=== PATIENT | male | born 1950 | race Caucasian/White ===

== ENCOUNTER 2024-11-22 16:55 | Inpatient (IN) | payer MEDICARE, SELFPAY ==
[2024-11-22 12:36] VITALS: BP 160/100
[2024-11-22 13:05] LABS: % Basophils 0.9 % (0-2); % Eosinophils 0.5 % (0-6); % Immature Granulocytes 0.2 % (0-0.5); % Lymphocytes 18.1 % (20.5-51.1); % Monocytes 6.8 % (1.7-9.3); % Neutrophils 73.5 % (42.2-75.2); Absolute Basophils 0.1 10^3/uL (0-0.2); Absolute Eosinophils 0.1 10^3/uL (0-0.7); Absolute Lymphocytes 2.3 10^3/uL (1.2-3.4); Absolute Monocytes 0.9 10^3/uL (0.1-0.6); Absolute Neutrophils 9.2 10^3/uL (1.4-6.5); Hematocrit 43.2 % (39.0-52.0); Hemoglobin 15.4 g/dL (13.0-18.0); Mean Corp Hgb Conc. 35.6 g/dL (33.0-37.0); Mean Corpuscular Hgb 30.2 pg (27.0-31.0); Mean Corpuscular Volume 84.7 fL (80.0-94.0); Mean Platelet Volume 8.9 fL (7.4-10.4); Nucleated Red Blood Cells % 0 % (-); Platelet Count 277 10^3/uL (130-400); Red Cell Dist. Width 12.7 % (11.5-14.5); White Blood Cell Count 12.5 10^3/uL (4.8-10.8)
[2024-11-22 13:16] LABS: ALT (SGPT) 20 U/L (0-50); AST (SGOT) 21 U/L (17-59); Albumin 4.7 g/dl (3.5-5.0); Alkaline Phosphatase 97 U/L (38-126); Blood Urea Nitrogen 16 mg/dl (9-20); Calcium 9.4 mg/dl (8.4-10.2); Carbon Dioxide 18 mmol/L (22-30); Chloride 109 mmol/L (98-107); Glucose 141 mg/dl (70-99); Sodium 138 mmol/L (135-145); Total Bilirubin 0.6 mg/dl (0.2-1.3); eGFR > 60.00
[2024-11-22 13:25] LABS: Troponin I < 0.012 ng/ml
[2024-11-22 13:29] VITALS: BP 152/102
[2024-11-22 13:51] LABS: Potassium 4.2 mmol/L (3.5-5.1); Total Protein 7.6 g/dl (6.3-8.2)
[2024-11-22 14:31] VITALS: BP 155/103
[2024-11-22] MEDS: DELTASONE 50 MG PO (14:43)
[2024-11-22] MEDS: DUONEB 3 ML INH (14:43)
[2024-11-22 14:55] LABS: D-Dimer 0.63 ug/mlFEU (0.00-0.50)
--- NOTE | 2024-11-22 15:01 | CM ---
Addendum entered by Andreina Hope 11/22/24 16:07:
Discussion with Dr Jimenez, will plan for admission
Lyft ride cancelled
Original Note:
ED CM consult for homeless services
Pt evicted this morning by [facility], pt has not prepared fort eviction
Homeless resources provided to pt along with [facility]
CM attempted to speak with [facility] directly for inquire into immediate [facility] availability, no answer
[facility] with immediate bed availability this evening
Pt declined local mot stay electing [facility] placement in [place]
CM to arrange for Lyft to [facility]
Medical work up pending, do not anticipate need for admission at this time
--- NOTE | 2024-11-22 15:11 | ED.GENMED ---
History of Present Illness
General
Chief Complaint: Anxiety
Source: patient and records
Exam Limitations: none
Time Seen by Provider: 11/22/24 14:11
Nursing documentation reviewed up to this point in time: agreed with
History of Present Illness
History of Present Illness:
73-year-old male with history as documented presents to the ER for evaluation of 'anxiety.' Patient says that he was evicted from his house today and he has nowhere to go. He says that he has been feeling very anxious because of this. He
describes anxiety as feeling short of breath with racing heart. He denies any chest pain. He denies any coughing, fevers, chills. He has had issues with anxiety in the past. He notes that his blood pressure has been high recently because he ran
out of his blood pressure medication that she cannot recall what medication he is supposed to be on. He says he has not taken it for at least a few days. Denies any drug or alcohol use. He denies any other complaints�specifically asked about
mental health concerns he denies suicidality, homicidal ideation, hallucinations.
Past History
Past History
ED Past Medical History: HTN and Psychiatric (anxiety , depression)
ED Past Surgical History: None and Tonsilectomy
Social History
Tobacco: Former smoker
Alcohol: Former
Drug: None
Personal: Single
Living: alone
Review of Systems
Review of Systems
All Other Systems: ROS reviewed and negative except as documented in HPI and ROS
Constitutional: Denies fever
Respiratory: Reports trouble breathing; Denies cough
Cardiac: Reports palpitations; Denies chest pain
ABD/GI: Denies abdominal pain, nausea or vomiting
: Denies flank pain
Musculoskeletal: Denies neck pain or back pain
Neurological: Denies dizzy or headache
Psychiatric: Reports anxiety; Denies suicidal or hallucinations
Phy Exam
Physical Exam
Physical Exam:
General: Awake, alert; no acute distress
Head: Normocephalic, atraumatic
Eyes: Conjunctiva normal, sclera anicteric
Throat: Airway intact, handling secretions
Neck: Trachea midline, supple without meningismus
Lungs: Scattered wheezing bilaterally; breathing comfortably with normal respiratory rate, normal pulse ox
Heart: Tachycardia with regular rhythm, no murmurs, gallops, or rubs
Abd: Soft, non distended, nontender
Neuro: No gross deficits
Extremities: No edema in extremities, warm and well-perfused
Scores
Heart Failure Risk
Heart Failure Risk Score: Not Applicable
Heart Score for Chest Pain Patients
STEMI patient?: Not applicable
Withdrawal Assessment of Alcohol
Withdrawal Assessment Completed?: Not applicable
Course
Orders/Labs/Results
Orders:
Orders
11/22/24 12:39
Electrocardiogram (*1) Urgent
Reason for Study: Hypertension, Benign
EKG- Treatment ONCE
11/22/24 12:42
Complete Blood Count/With Diff Urgent
Comprehensive Metabolic Panel Urgent
Troponin I Urgent
11/22/24 14:20
Case Management Consult ONCE
Case Management Consult: Discharge Planning
11/22/24 14:30
D-Dimer Urgent
11/22/24 14:35
Ipratropium/Albuterol Sulfate [Duoneb] 3 ml INH R NOW STA
Prednisone [Deltasone] 50 mg PO NOW STA
11/22/24 14:36
CR Chest - 2 Views Urgent
Comment:
Reason For Exam: sob
11/22/24 15:54
Amlodipine [Norvasc] 5 mg .ROUTE .STK-MED ONE
11/22/24 16:00
Amlodipine [Norvasc] 5 mg PO DAILY
11/22/24 16:03
Azithromycin 500 mg/250 ml [Zithromax Infusion] 500 mg in 250 ml IV NOW
CefTRIAXone [Rocephin] 1,000 mg IV NOW STA
11/22/24 16:15
Blood Culture Q30M
[facility] Source: Blood/Venous
Specimen Description:
11/22/24 16:45
Blood Culture Q30M
[facility] Source: Blood/Venous
Specimen Description:
Abnormal Lab Results
11/22/24 11/22/24
12:42 14:30
WBC 12.5 H 10^3/uL
(4.8-10.8)
Absolute Neuts (auto) 9.2 H 10^3/uL
(1.4-6.5)
Absolute Monos (auto) 0.9 H 10^3/uL
(0.1-0.6)
Lymphocytes % 18.1 L %
(20.5-51.1)
D-Dimer 0.63 H ug/mlFEU
(0.00-0.50)
Chloride 109 H mmol/L
(98-107)
Carbon Dioxide 18 L mmol/L
(22-30)
Glucose 141 H mg/dl
(70-99)
11/22/24 12:42
11/22/24 12:42
Vital Signs
Initial and Last Documented VS:
Initial Vital Signs
Temp Pulse Resp BP Pulse Ox
36.9 C 118 18 160/100 95
11/22/24 12:36 11/22/24 12:36 11/22/24 12:36 11/22/24 12:36 11/22/24 12:36
Last Documented Vital Signs
Temp Pulse Resp BP Pulse Ox
36.9 C 95 18 118/66 95
11/22/24 12:36 11/22/24 15:59 11/22/24 14:31 11/22/24 15:59 11/22/24 16:00
MDM/Problems Addressed
Differential Diagnosis Includes:
Shortness of breath: anxiety, COPD, pneumonia, PE, ACS, dysrhythmia
MDM/Problems Addressed:
73-year-old male presents for evaluation of 'anxiety'�describes subjective shortness of breath, palpitation, anxious feeling that started after eviction from his apartment today. Hypertensive�has been noncompliant with blood pressure medication he
says because he ran out of his prescription. Queried his pharmacy he has been on amlodipine�benazepril 5-10 mg tablets. He is not mildly hypertensive here, heart rate low 100s. Physical exam as above. He does have some wheezing on exam he says
that he is a daily smoker�certainly COPD could be adding to his feeling of shortness of breath although I do suspect strong component of anxiety. Multiple visits for anxiety in the past. Will send off labs to rule out emergent pathology including
CBC and a CMP, D-dimer, troponin. Check chest x-ray and EKG. Provide DuoNeb and steroid. Reassess after the above.
Labs reviewed: CBC shows marginal leukocytosis unlikely of acute clinical significance. CMP no clinically significant abnormalities. Troponin undetectable. D-dimer age-adjusted negative. EKG sinus rhythm. Patient feeling a bit better after
DuoNeb and steroid. Discussed with corrections caseworker�able to place in [facility] in [place]. Awaiting results of chest x-ray�if normal will prescribe short course of steroids, albuterol, refill blood pressure medication and discharged to [facility].
Chest x-ray reviewed by me shows no acute disease. Stable for discharge�will treat for mild bronchitis/COPD with albuterol and prednisone. Prescribed his normal blood pressure medication. Will discharge to [facility].
Chest x-ray over read by radiology: Positive for right basilar pneumonia. He does have multiple SIRS criteria and he has poor healthcare follow-up currently will be homeless. Will plan to admit for treatment given these factors�discussed with
hospitalist.
Acute Exacerbation and/or Progression of Chronic Illness:
Acute COPD/bronchitis�managed with nebs and steroids
*Radiology
Radiology exam reviewed: preliminary read by ED provider
*Pulse Oximetry
Patient hypoxic: no
*EKG
Interpreted by ED Provider?: Yes
Heart Rate: 104
Rate: tachycardiac
Rhythm: sinus
Sutton: normal axis
Interval: normal interval
QRS Pattern: normal QRS
Ischemia: no ischemia
*Critical Care Note
Total Time (30-74mins, 75-104mins- exclusive of procedures): Not Applicable
Data Reviewed
Review of Other/Old Records Reveals: Labs and Records
Source: patient and records
Patient Management
Social determinants of health affecting care: Living situation, Financial situation, Poor outpatient follow-up and Poor social support
Discussion with other providers: Hospitalist (Cussed with hospitalist) and Other (Discussed with stitch rubber)
Escalation/DeEscalation of care consider admission/obs:
Admission indicated
ED Attending Note
-
Portions of this chart may have been created with voice recognition software.� Occasional wrong word or��sound alike� substitutions may have occurred due to the inherent limitations of voice recognition software.
Discharge Plan
Departure
Patient Disposition: Admit
Date of Disposition: 11/22/24
Time of Disposition: 16:07
Admit to doctor: Htay
Presentation/result/management discussed w/ accepting MD/DO: Hospitalist
Patient with high blood pressure during this ER visit?: Yes
Discharge Problem:
COPD exacerbation, Anxiety, Hypertension, Pneumonia
Prescriptions:
New
amlodipine-benazepril 5-10 mg capsule
1 cap PO DAILY Qty: 30 0RF
No Action
lorazepam [Ativan] 0.5 mg tablet
0.5 mg PO DAILY PRN (Reason: anxiety) Qty: 10 0RF
Referrals:
Cruz Mitchell MD [Family Provider] - None
Interventions
Interventions:
*Risk Screen - Suicide Last Done: 11/22/24 12:36
*General Assessment Last Done: 11/22/24 14:34
*Neglect/Abuse Screening Last Done: 11/22/24 12:36
*ED- Fall Risk Assessment Last Done: 11/22/24 14:32
*ED COVID-19 Vaccine History Last Done: 11/22/24 14:32
ED-Psychological Assessment Last Done: 11/22/24 14:34
Discharge Date and Time
Print Language: FAROESE
[2024-11-22] MEDS: NORVASC 5 MG PO (15:59)
--- NOTE | 2024-11-22 16:32 | HPS.HSE ---
Family Physician
-
Family Physician: Cruz Mitchell
Chief Complaint
-
anxiety , sob
History of Present Illness
HPI
73F Homelessness HX HTN, anxiety and depression seen at ER for 'anxiety.'
- reported he got evicted from his house today and he has nowhere to go and has been feeling very anxious - - describes anxiety as feeling short of breath with racing heart.
- BP has been high recently because he ran out of his blood pressure medication
- Denies any drug or alcohol use.
- denies any other complaints
- specifically asked about mental health concerns he denies suicidality, homicidal ideation, hallucinations.
ROS
-denies any chest pain.
Medical History
Past Medical History
Past Medical History: Reports HTN
Past Surgical History: Reports None
Social History
Tobacco: Non-smoker
Alcohol: None
Living: Homeless
Family History
Family History: Not pertinent
Allergies / Home Medications
Allergies reflects when Allergies were last updated in [employer].
Home Medications with original date entered in [employer]
Allergy/Medication List:
Allergies
Allergy/AdvReac Type Severity Reaction Status Date / Time
No Known Allergies Allergy Verified 11/22/24 12:38
Home Medications
amlodipine 5 mg-benazepril 10 mg capsule 1 cap PO DAILY #30 caps 11/22/24
ibuprofen 800 mg tablet 800 mg PO DAILYPRN PRN mild pain 11/22/24
sertraline 100 mg tablet 200 mg PO DAILY 11/22/24
Review of Systems
-
Constitutional: Reports No Symptoms
EENT: Reports No Symptoms
Respiratory: Reports See HPI
Cardiac: Reports No Symptoms
Abdomen/GI: Reports No Symptoms
: Reports No Symptoms
Musculoskeletal: Reports No Symptoms
Skin: Reports No Symptoms
Neurological: Reports No Symptoms
Endocrine: Reports No Symptoms
Hematologic/Lymphatic: Reports No Symptoms
Psych: Reports Anxiety
Physical Exam
Vital Signs
Vital Signs
Temp Pulse Resp BP Pulse Ox
98.4 F 95 18 118/66 95
11/22/24 12:36 11/22/24 15:59 11/22/24 14:31 11/22/24 15:59 11/22/24 16:00
Physical Exam
General: Well Developed, Well Nourished and No Apparent Distress
HEENT: NormoCephalic, Moist mucous membranes and Atraumatic
Respiratory: Wheezes (Scattered wheezing bilaterally; breathing comfortably with normal respiratory rate, normal pulse ox)
Cardiac: S1/S2 and Regular Rhythm; No Murmur or Rub
GI: Soft, Non Tender, Non Distended and Normal Bowel Sounds; No Organomegaly
Rectal: Deferred by Provider
Musculoskeletal: No Clubbing, No Cyanosis and No Edema
Skin: No Rash
Neuro: Nonfocal/grossly intact
Laboratory Results
-
11/22/24 12:42
11/22/24 12:42
Laboratory Results
Total Bilirubin 0.6 mg/dl (0.2-1.3) 11/22/24 12:42
AST 21 U/L (17-59) 11/22/24 12:42
ALT 20 U/L (0-50) 11/22/24 12:42
Alkaline Phosphatase 97 U/L (38-126) 11/22/24 12:42
Troponin I < 0.012 ng/ml 11/22/24 12:42
Data Reviewed
-
Diagnostic Radiology: Report Reviewed by me
Lab Data: Labs Reviewed by me
Impression/Plan
-
Vital Signs
Temp Pulse Resp BP Pulse Ox
98.4 F 95 18 118/66 95
11/22/24 12:36 11/22/24 15:59 11/22/24 14:31 11/22/24 15:59 11/22/24 16:00
Selected Entries
11/22/24
12:36
Temp 98.4 F
Pulse 118
Resp Rate 18
Blood pressure 160/100
SaO2 95
Oxygen Mode of Delivery Room air
Labs
11/22/24 11/22/24
12:42 14:30
WBC 12.5 H
Hgb 15.4
D-Dimer 0.63 H
Chloride 109 H
Carbon Dioxide 18 L
eGFR > 60.00
Glucose 141 H
Troponin I < 0.012
CXR
There is a right basilar, likely pneumonia.
EKG
SINUS TACHYCARDIA
OTHERWISE NORMAL ECG
NO PREVIOUS ECGS AVAILABLE
Confirmed by MD MASSIMO, MATILDA Dhaliwal ([id number]) on 11/22/2024 1:16:58 PM
ASSESSMENT & PLAN
Pending Rx reconciliation
Homelessness with anxiety suspect situational
Denies suicidality, homicidal ideation, hallucinations.
HX sertraline for depression
- c/w Sertraline 100mg daily
- check TSH
- CRM consult
SIRS( HR > 90, WCC > 10 )
CXR suggest right basilar, likely PNA
presumed sepsis due to PNA presumed CAP
Adequate Oxygenation on RA
- SoB but denied cough
- Afebrile
- c/w I CFTX and PO Azitro for now
- check PCT
- Trend T and WCC
- PRN O2 support to keep POx > 94
Uncontrol HTN due to lack of Medication
Improved BP with PO amlodipine at ER
- c/w Amlodipine 5 mg daily
- Observe BP
DVT Px: LMWH
Full
IP TLM
[2024-11-22] MEDS: ROCEPHIN 1000 MG IV (17:58)
[2024-11-22] MEDS: ZITHROMAX INFUSION 250 IV (17:58)
[2024-11-22 18:40] LABS: Procalcitonin < 0.05 ng/ml (0.0-0.25)
[2024-11-22 19:41] VITALS: BP 151/96; BMI 28.0
--- NOTE | 2024-11-22 19:45 | PTCARENOTE ---
Patient arrived from ED via stretcher. Patient AAOx3, ambulatory able to make needs known. IV flushed and patent.
[2024-11-22 23:40] VITALS: BP 135/70
[2024-11-23 07:42] VITALS: BP 184/87
[2024-11-23] MEDS: ZITHROMAX 500 MG PO (07:49)
[2024-11-23] MEDS: ZOLOFT 200 MG PO (07:49)
[2024-11-23] MEDS: NORVASC 5 MG PO (07:49)
[2024-11-23 08:14] LABS: Hemoglobin 13.2 g/dL (13.0-18.0); Mean Corp Hgb Conc. 34.7 g/dL (33.0-37.0); Mean Corpuscular Hgb 30.1 pg (27.0-31.0); Mean Corpuscular Volume 86.6 fL (80.0-94.0); Mean Platelet Volume 9.5 fL (7.4-10.4); Platelet Count 226 10^3/uL (130-400); Red Blood Cell Count 4.39 10^6/uL (4.70-6.10); Red Cell Dist. Width 12.7 % (11.5-14.5); White Blood Cell Count 14.2 10^3/uL (4.8-10.8)
[2024-11-23 08:51] LABS: Blood Urea Nitrogen 17 mg/dl (9-20); Calcium 8.8 mg/dl (8.4-10.2); Carbon Dioxide 23 mmol/L (22-30); Chloride 110 mmol/L (98-107); Estimated Creatinine Clearance 90 ml/min; Glucose 152 mg/dl (70-99); Potassium 3.7 mmol/L (3.5-5.1); Sodium 142 mmol/L (135-145); eGFR > 60.00
[2024-11-23 08:57] LABS: TSH 1.34 uIU/ml (0.47-4.68)
[2024-11-23 09:29] VITALS: BP 172/107
[2024-11-23 10:34] LABS: COVID-19 Antigen Negative (Negative)
--- NOTE | 2024-11-23 11:35 | CM ---
Met w/ patient bedside, still agreeable to [facility] at d/c. Spoke w/ Barb/[facility] who confirmed there are beds today.
Per physician resident, will keep patient another day to stabilize BP
CM will arrange Lyft when ready for d/c
Plan: [facility]
[2024-11-23] MEDS: COZAAR 25 MG PO (11:41)
[2024-11-23] MEDS: PROTONIX 20 MG PO ×2 (11:41→19:26)
[2024-11-23 11:42] VITALS: BP 173/94
[2024-11-23 13:23] VITALS: BP 145/84
--- NOTE | 2024-11-23 14:54 | W.PN.HOSP.TC ---
Addendum entered and electronically signed by Laura Hooker MD 11/23/24 15:31:
I saw and evaluated the patient. I reviewed the resident�s note and agree with findings and plan as documented in the resident�s note.
A/P:
# Anxiety, mood stable
Continue with THERAPEUTIC SUPPORT STAFF sertraline 100 mg
No suicidal thoughts, hallucinations, homicidal ideations
TSH 1.34
# homelessness
assistant manager/embalmer on board, has found a care home for patient in [place]
# Hypertension urgency
Cont THERAPEUTIC SUPPORT STAFF amlodipine 5 mg,
Use losartan [address] THERAPEUTIC SUPPORT STAFF benazepril
IV hydralazine as needed
Monitor blood pressure
# Low likelihood of CAP
Although CXR noted infiltrate of right base, procal is negative, patient also nontoxic-appearing and without fever
Pt's chronic cough likely due to chronic cigarette smoking
Pt was started with empiric Abx Ceftriaxone/azithromycin, can cont for now until WBC improved (leukocytosis likely reactive)
# GERD
Protonix 20 mg p.o. twice daily
# nicotine dependence
counselled on smoking cessation
Offered nicotine patch, but patient declined
Original Note:
Today's Communication/Plan
-
- monitor cbc and fever curve
- monitor blood pressure
- follow up with case managment
Assessment / Plan
Assessment / Plan
Anxiety d/t homelessness:
- Continue with sertraline 100 mg
- No suicidal thoughts, hallucinations, homicidal ideations
- TSH is pending
- Case management states that there is a homeless care home in [place] and will find him a bed there
Uncontrolled hypertension:
-No chest pain, headache, dizziness, blurry vision, syncope.
- Blood pressures 172 / 107 and uncontrolled
- Currently on amlodipine 5 Mg, added losartan 25 Mg and IV hydralazine as needed
- Monitor blood pressure
- Patient gets medications through [facility], informed him of low cost alternative pharmacies to get affordable generic medication
Suspected pneumonia right basilar:
- Patient is afebrile, WBC count is elevated at 14.2 and trending up from admission, oxygen saturation 95% on room air
- Patient has a chronic cough
- X-ray shows right basilar opacity
- Procalcitonin is negative
-Continue Rocephin, azithromycin
Leukocytosis:
- Most likely reactive, continue to trend, afebrile
GERD:
- IV Protonix 20 Mg p.o. twice daily
nictone abuse:
- counselled on stopping smoking
- Patient did not want nictotine patch or pharmacological treatment to stop smoking
Anticipated Discharge: 24 - 48 hours
Subjective/Interval History
-
Date of Service: November 23, 2024
Patient is complaining of heartburn.
Objective Data
-
Labs:
Laboratory Results
11/23/24
07:47
WBC 14.2 H
Hgb 13.2
Hct 38.0 L
Plt Count 226
Sodium 142
Potassium 3.7
Chloride 110 H
Carbon Dioxide 23
BUN 17
Creatinine 0.8
Glucose 152 H
Calcium 8.8
Vital Signs:
Vital Signs
Temp Pulse Resp BP Pulse Ox
98.2 F 81 18 145/84 95
11/23/24 07:42 11/23/24 13:23 11/23/24 07:42 11/23/24 13:23 11/23/24 07:42
Review of Systems
-
History Source: Patient
Abdomen/GI: Reports GERD
Physical Exam
-
General: Well Developed
Respiratory: Clear to Auscultation
Cardiac: Regular Rhythm and S1/S2
GI: Soft, Nontender, Nondistended and Normal Bowel Sounds
[2024-11-23 14:58] VITALS: BP 124/85
[2024-11-23] MEDS: STERILE WATER FOR INJECTION 10 ML IV (17:27)
[2024-11-23] MEDS: ROCEPHIN 1000 MG IV (17:29)
[2024-11-23 23:29] VITALS: BP 149/76
[2024-11-24 07:00] VITALS: BP 152/97
[2024-11-24 08:37] LABS: ALT (SGPT) 16 U/L (0-50); AST (SGOT) 18 U/L (17-59); Albumin 4.1 g/dl (3.5-5.0); Alkaline Phosphatase 87 U/L (38-126); Blood Urea Nitrogen 25 mg/dl (9-20); Calcium 8.9 mg/dl (8.4-10.2); Carbon Dioxide 21 mmol/L (22-30); Chloride 111 mmol/L (98-107); Estimated Creatinine Clearance 103 ml/min; Glucose 111 mg/dl (70-99); Potassium 4.1 mmol/L (3.5-5.1); Sodium 139 mmol/L (135-145); Total Bilirubin 0.6 mg/dl (0.2-1.3); Total Protein 6.7 g/dl (6.3-8.2); eGFR > 60.00
[2024-11-24 08:42] LABS: % Basophils 0.9 % (0-2); % Eosinophils 1.9 % (0-6); % Immature Granulocytes 0.4 % (0-0.5); % Lymphocytes 23.8 % (20.5-51.1); % Monocytes 7.8 % (1.7-9.3); % Neutrophils 65.2 % (42.2-75.2); Absolute Basophils 0.1 10^3/uL (0-0.2); Absolute Eosinophils 0.2 10^3/uL (0-0.7); Absolute Immature Granulocytes 0.1 10^3/uL (0-0.05); Absolute Lymphocytes 2.8 10^3/uL (1.2-3.4); Absolute Monocytes 0.9 10^3/uL (0.1-0.6); Absolute Neutrophils 7.6 10^3/uL (1.4-6.5); Hematocrit 40.1 % (39.0-52.0); Hemoglobin 14.3 g/dL (13.0-18.0); Mean Corp Hgb Conc. 35.7 g/dL (33.0-37.0); Mean Corpuscular Hgb 30.8 pg (27.0-31.0); Mean Corpuscular Volume 86.2 fL (80.0-94.0); Mean Platelet Volume 9.7 fL (7.4-10.4); Nucleated Red Blood Cells % 0 % (-); Platelet Count 206 10^3/uL (130-400); Red Blood Cell Count 4.65 10^6/uL (4.70-6.10); Red Cell Dist. Width 12.7 % (11.5-14.5); White Blood Cell Count 11.7 10^3/uL (4.8-10.8)
[2024-11-24] MEDS: ZITHROMAX 500 MG PO (08:51)
[2024-11-24] MEDS: PROTONIX 20 MG PO (08:51)
[2024-11-24] MEDS: NORVASC 5 MG PO (08:51)
[2024-11-24] MEDS: COZAAR 25 MG PO (08:51)
[2024-11-24] MEDS: ZOLOFT 200 MG PO (08:52)
[2024-11-24 14:08] VITALS: BP 136/78; BP 158/96
[2024-11-24 14:11] VITALS: BP 138/69; BP 158/96
[2024-11-24 15:00] VITALS: BP 143/78
--- NOTE | 2024-11-24 15:01 | W.PN.HOSP.TC ---
Addendum entered and electronically signed by Laura Hooker MD 11/25/24 10:42:
total DC time 37 min
Addendum entered and electronically signed by Laura Hooker MD 11/24/24 15:23:
I saw and evaluated the patient. I reviewed the resident�s note and agree with findings and plan as documented in the resident�s note.
A/P:
# Anxiety, mood stable
Continue with HADOOP ARCHITECT sertraline 100 mg
No suicidal thoughts, hallucinations, homicidal ideations
TSH 1.34
# homelessness
sem manager has found a usp for patient in [place]
# Hypertension urgency
Cont HADOOP ARCHITECT amlodipine 5 mg,
Use losartan [address] HADOOP ARCHITECT benazepril while inpt
BP normalized , can cont home amlodipine-benazepril following discharge
IV hydralazine PRN
Monitor blood pressure
# Low likelihood of CAP
Although CXR noted infiltrate of right base, procal is negative, patient also nontoxic-appearing and without fever
Pt's chronic cough likely due to chronic cigarette smoking
Pt was started with empiric Abx Ceftriaxone/azithromycin, can DC further (leukocytosis likely reactive)
# GERD
Protonix 20 mg p.o. twice daily
# nicotine dependence
counselled on smoking cessation
Offered nicotine patch, but patient declined
Original Note:
Today's Communication/Plan
-
- patient discharged today
Assessment / Plan
Assessment / Plan
Anxiety d/t homelessness:
- Continue with sertraline 100 mg on discharge
- No suicidal thoughts, hallucinations, homicidal ideations
- TSH normal
- Case management states that there is a homeless usp in [place] and will find him a bed there
Uncontrolled hypertension:
-No chest pain, headache, dizziness, blurry vision, syncope.
- Blood pressures 149/76 and uncontrolled
- Currently on amlodipine 5 Mg outpatient, printed patient a script
- Monitor blood pressure
- Patient gets medications through [facility], informed him of low cost alternative pharmacies to get affordable generic medication
Suspected pneumonia right basilar:
- Patient is afebrile, WBC count is elevated at 11.7 and trending down from admission, oxygen saturation 95% on room air
- Patient has a chronic cough most likely from smoking
- X-ray shows right basilar opacity
- Procalcitonin is negative
- stopped Rocephin, azithromycin
Leukocytosis:
- Most likely reactive, continue to trend, afebrile
- CBC in 1 week with pcp
GERD:
- transition to oral bid 20 mg
nictone abuse:
- counselled on stopping smoking
- Patient did not want nictotine patch or pharmacological treatment to stop smoking
Anticipated Discharge: Today
Subjective/Interval History
-
Date of Service: November 24, 2024
No acute medical complaints.
Objective Data
-
Labs:
Laboratory Results
11/24/24
07:59
WBC 11.7 H
Hgb 14.3
Hct 40.1
Plt Count 206
Sodium 139
Potassium 4.1
Chloride 111 H
Carbon Dioxide 21 L
BUN 25 H
Creatinine 0.7
Glucose 111 H
Calcium 8.9
Total Bilirubin 0.6
AST 18
ALT 16
Alkaline Phosphatase 87
Vital Signs:
Vital Signs
Temp Pulse Resp BP Pulse Ox
98.3 F 90 18 152/97 95
11/24/24 07:00 11/24/24 07:00 11/24/24 07:00 11/24/24 07:00 11/24/24 08:50
I&O
11/23/24 11/24/24 11/25/24
06:59 06:59 06:59
Output Total 150 / 150
Balance -150 / -150
Review of Systems
-
History Source: Patient
Physical Exam
-
General: Well Developed
Respiratory: Clear to Auscultation
Cardiac: Regular Rhythm and S1/S2
GI: Soft, Nontender, Nondistended and Normal Bowel Sounds
Musculoskeletal: No Cyanosis and No Edema
Skin: Warm and Dry
Neuro: Awake, Alert, Oriented and AO x 3
Psych: Calm
Data Reviewed
-
Labs: Labs Reviewed by me and Discussed with Physician
--- NOTE | 2024-11-24 16:05 | CM ---
Addendum entered by Imani Cordova 11/24/24 16:11:
4:30pm slate picker to [place] by Robert.
Original Note:
Patient to go to a intermediate in [place] today, by Robert, patient will need scripts for medications, patient has some medications, and patient has had dinner prior to discharge.
Note patient is on the wait list for [facility] apartments and has 6 more months to wait for an apartment.
Plan; Patient to transfer to intermediate in [place].
--- NOTE | 2024-11-24 18:34 | W.DCSUMMARY ---
Documented by User: Ming Arndt MD, Resident 11/24/24 18:52
Discharge Summary
Discharge Data
Date of Admission: 11/22/24
Date of Discharge: 11/24/24
-
Pending Results: No
Hospital Course
Discharging Physician : Dr. Laura Hooker and Dr. Ming Arndt
Disposition : Other ( Homeless retirement)
Primary care physician : Dr. Cruz Mitchell
Principal Discharge diagnosis : Anxiety, Hypertensive urgency
Chronic Discharge diagnosis : GERD, Nictone dependence, Hypertension
Hospital Course : 73-year-old male with anxiety, depression, and hypertension presents to the ER for evaluation of anxiety. Evicted from his house today and he has nowhere to go. He says that he has been feeling very anxious because of housing
situation. Feeling short of breath with racing heart. He has had issues with anxiety in the past and takes sertraline. He notes that his blood pressure has been high recently because he ran out of his blood pressure medication. He says he has
not taken it for at least a few days. Denies any drug or alcohol use. Denies suicidality, homicidal ideation, hallucinations. Case management eventually found him homeless retirement to be discharged to in [facility]. All his
prescriptions were written on paper and handed to him so that he can use them at any pharmacy.
Problem #1: Anxiety- Patient presented with anxiety due to uncertainty about housing situation due to recent eviction. He was continued on his dose of sertraline 100 Mg twice daily. No suicidal thoughts, hallucinations, homicidal ideations. TSH
was 1.34 normal. Mood was stable on discharge.
Problem #2: Hypertensive urgency-blood pressure is 124/85 and stabilized on discharge. He was initially on Norvasc 5 mg and that was not enough to control the blood pressure so then added on losartan 25 mg which was discontinued on discharge and
hydralazine 10 mg as needed. No headache, dizziness, blurry vision, chest pain, palpitations. Patient continued on home dose of amlodipine-benzapril on discharge.
Problem #3: Low likelihood of community-acquired pneumonia�chest x-ray showed infiltrates of right base and patient had a chronic cough however Pro-Yoan is negative. Patient is also afebrile. Patient was started on empiric antibiotics but they were
further discontinued. He still has an elevated leukocyte count of 11.7 on discharge. Nasal swab negative for influenza. Follow-up CBC in 1 week with PCP.
Problem #3: GERD-patient complained of burning sensation in the chest after eating, was placed on Protonix 20 Mg p.o. IV and his symptoms resolved. Medication was transitioned to 20 Mg p.o. twice daily on discharge.
Problem #4: Nicotine dependence-counseled on smoking sensation and offered nicotine patch but declined.
Important imaging findings :
Chest x-ray 11/22/2024:
-IMPRESSION:
There is a right basilar, likely pneumonia.
Electrocardiogram:
-SINUS TACHYCARDIA
OTHERWISE NORMAL ECG
NO PREVIOUS ECGS AVAILABLE
Procedure findings :
Discharge Plan
-
Patient Disposition: Other
Discharge Diagnosis/Procedures: Anxiety, Homelessness, Hypertensive urgency, GERD, nicotine dependence
Condition: Fair
Diet: Low Cholesterol
Activity: As tolerated
Driving Restrictions: As prior to admission
Bathing Restrictions: None
Blood Work: CBC in 1 week with PCP
Referrals:
Cruz Mitchell MD [Family Provider] - in less than 1 week
Additional Discharge Medication Instructions: Printed medication list for Amlodipine-benazepril and Sertraline so that patient can use at any pharmacy because he is currently being transported to a homeless retirement in [place].
Prescriptions:
New
amlodipine-benazepril 5-10 mg capsule
1 cap PO DAILY Qty: 30 0RF
pantoprazole 20 mg tablet,delayed release (DR/EC)
20 mg PO BID Qty: 60 0RF
Continued
ibuprofen 800 mg Tablet
800 mg PO DAILYPRN PRN (Reason: mild pain)
sertraline 100 mg Tablet
200 mg PO DAILY Qty: 30 0RF
Discharge Orders:
Discharge Patient (As Directed); Ordered 11/24/24
Ordered By: Ming Arndt
Discharge Date and Time
Discharge Date/Time: 11/24/24 16:55
Print Language: CENTRAL AFRICAN

Documented by User: Laura Hooker MD 11/25/24 10:42
Discharge Summary
Discharge Data
Date of Admission: 11/22/24
Date of Discharge: 11/24/24
Hospital Course
Discharging Physician : Dr. Laura Hooker and Dr. Ming Arndt
Disposition : Other ( Homeless retirement)
Primary care physician : Dr. Cruz Mitchell
Principal Discharge diagnosis : Anxiety, Hypertensive urgency
Chronic Discharge diagnosis : GERD, Nicotine dependence, Hypertension
Hospital Course : 73-year-old male with anxiety, depression, and hypertension presented to the ER for evaluation of anxiety. He was evicted from his house and had nowhere to go. He says that he has been feeling very anxious because of housing
situation. He takes sertraline for anxiety. His blood pressure has been high recently because he ran out of his blood pressure medication. Denies any drug or alcohol use. Denies suicidality, homicidal ideation, hallucinations. Case management was
consulted and found him a homeless retirement in [facility]. All his prescriptions were written on paper and handed to him so that he can use them at any pharmacy.
Problem #1: Anxiety- Patient presented with anxiety due to uncertainty about housing situation due to recent eviction. He was continued on his dose of sertraline 100 Mg twice daily. No suicidal thoughts, hallucinations, homicidal ideations. TSH
was 1.34 normal. Mood was stable on discharge.
Problem #2: Hypertensive urgency which improved (blood pressure 124/85 on discharge). He was on Norvasc 5 mg and losartan 25 mg while in the hospital and was discharged back to continue his home blood pressure medication Norvasc/benazepril.
Problem #3: GERD- patient complained of burning sensation in the chest after eating, was placed on Protonix 20 Mg p.o. IV and his symptoms resolved. Medication was transitioned to 20 Mg p.o. twice daily on discharge.
Problem #4: Nicotine dependence-counseled on smoking sensation and offered nicotine patch but he declined.
Important imaging findings :
Chest x-ray 11/22/2024:
-IMPRESSION:
There is a right basilar, likely pneumonia.
Electrocardiogram:
-SINUS TACHYCARDIA
OTHERWISE NORMAL ECG
NO PREVIOUS ECGS AVAILABLE
Discharge Plan
-
Patient Disposition: Other
Discharge Diagnosis/Procedures: Anxiety, Homelessness, Hypertensive urgency, GERD, nicotine dependence
Condition: Fair
Diet: Low Cholesterol
Activity: As tolerated
Driving Restrictions: As prior to admission
Bathing Restrictions: None
Blood Work: CBC in 1 week with PCP
Referrals:
Cruz Mitchell MD [Family Provider] - in less than 1 week
Additional Discharge Medication Instructions: Printed medication list for Amlodipine-benazepril and Sertraline so that patient can use at any pharmacy because he is currently being transported to a homeless retirement in [place].
Prescriptions:
New
amlodipine-benazepril 5-10 mg capsule
1 cap PO DAILY Qty: 30 0RF
pantoprazole 20 mg tablet,delayed release (DR/EC)
20 mg PO BID Qty: 60 0RF
Continued
ibuprofen 800 mg Tablet
800 mg PO DAILYPRN PRN (Reason: mild pain)
sertraline 100 mg Tablet
200 mg PO DAILY Qty: 30 0RF
Discharge Orders:
Discharge Patient (As Directed); Ordered 11/24/24
Ordered By: Ming Arndt
Discharge Date and Time
Discharge Date/Time: 11/24/24 16:55
Print Language: CENTRAL AFRICAN
== END 2024-11-24 16:55 | disposition home or self-care (01) | DRG 880 ==
LOC: 4 WEST ACU 16:55
PROVIDERS: Student in an Organized Health Care Education/Training Program; ADMITTING PHYSICIAN Internal Medicine; ATTENDING PHYSICIAN Internal Medicine; EMERGENCY PHYSICIAN Emergency Medicine; FAMILY PHYSICIAN Family Medicine
DX: F41.9 Anxiety disorder, unspecified (principal); R65.10 Systemic inflammatory response syndrome (SIRS) of non-infectious origin without acute organ dysfunction; Z59.01 Sheltered homelessness; I16.0 Hypertensive urgency; F32.A Depression, unspecified; I10 Essential (primary) hypertension; D72.829 Elevated white blood cell count, unspecified; R05.3 Chronic cough; K21.9 Gastro-esophageal reflux disease without esophagitis; F17.218 Nicotine dependence, cigarettes, with other nicotine-induced disorders; Z60.8 Other problems related to social environment; Z91.148 Patient's other noncompliance with medication regimen for other reason; Z73.3 Stress, not elsewhere classified
CPT/HCPCS: 71046; 80048; 80053; 84145; 84443; 84484; 85025; 85027; 85379; 87040; 87502; 87811; 93005; 94640; 97161; 97166; 99285